=== PATIENT | female | born 1960 | race Caucasian/White ===

== ENCOUNTER → 2021-02-15 | Outpatient (CLI) | payer BC ==
[~2021-02-15] MED LIST: AZELASTINE137 MCG/A1 INH; DIFLUCAN100 MG PO; FLOVENT HFA12 GM INH; GABAPENTIN800 MG PO; HYDROCODONE BIT1 T11 PO; LEVOTHYROXINE137 MCG PO; LORAZEPAM2 MG PO; MODAFINIL200 M1 PO; PREVACID SOLUTA30 MG PO; REGLAN10 MG PO; TRAMADOL HCL50 MG PO; VITAMIN D5000 I3 PO; ZOFRAN ODT4 MG SL
[2021-02-15 08:37] LABS: FREE T4 1.21 ng/dl (0.76-1.46)
[2021-02-15 08:43] LABS: THYROID STIM HORMONE (HS) 1.07 uIU/ml (0.358-4.75)
[2021-02-15 09:46] LABS: VITAMIN D, 25-HYDROXY 81.2 ng/mL (30-100)
[2021-02-18 20:07] LABS: METHYLMALONIC ACID 185 nmol/L (0-378)
== END | disposition home or self-care (01) ==
LOC: LAB 07:10
PROVIDERS: ATTEND Psychiatry & Neurology Neurology
DX: G35 Multiple sclerosis (principal); R20.0 Anesthesia of skin; R29.6 Repeated falls

== ENCOUNTER → 2022-08-22 | Outpatient (CLI) | payer BC | END | disposition home or self-care (01) | LOC: LAB 14:21 | PROVIDERS: ATTEND Internal Medicine Gastroenterology | DX: Z01.812 Encounter for preprocedural laboratory examination (principal) ==

== ENCOUNTER → 2022-08-23 | Outpatient (CLI) | payer BC | END | disposition home or self-care (01) | LOC: LAB 01:09 → CT 01:09 | PROVIDERS: ATTEND Internal Medicine Gastroenterology | DX: K76.0 Fatty (change of) liver, not elsewhere classified (principal) ==

== ENCOUNTER → 2023-07-23 | Outpatient (CLI) | payer BC | END | disposition home or self-care (01) | LOC: MAMMO 01:28 | PROVIDERS: ATTEND Internal Medicine | DX: Z12.31 Encounter for screening mammogram for malignant neoplasm of breast (principal) ==